=== PATIENT | female | born 1955 | race Caucasian/White ===

== ENCOUNTER 2021-05-23 20:39 | Emergency (ER) | payer OTHER ==
[2021-05-23 22:24] LABS: BASOPHIL 0.3 % (0-2); HCT 38.1 % (37.0-47.0); HGB 12.6 g/dl (12.5-16.0); LYMPHOCYTE 49.8 % (15-48); MCH 31.6 pg (25.0-31.0); MCHC 33.1 g/dL (32.0-36.0); MCV 95.5 fL (78.0-100.0); MONOCYTE 6.4 % (0-12); MPV 10.1 fL (6.0-9.5); NEUTROPHIL 42.2 % (41-80); NRBC 0; PLT 224 K/uL (150-400); RBC 3.99 M/uL (4.20-5.40); RDW 12.6 % (11.5-14.0); WBC 13.4 K/uL (4.0-10.5)
[2021-05-23 22:52] LABS: BUN/CREAT RATIO (CALC) 14.7 RATIO; CREATININE 1.16 mg/dL (0.51-0.95); POTASSIUM 4.2 mmol/L (3.5-5.1)
== END 2021-05-24 00:35 | disposition home or self-care (01) ==
LOC: FER 20:39
PROVIDERS: Internal Medicine
DX: M54.12 Radiculopathy, cervical region (principal); N17.9 Acute kidney failure, unspecified; E11.9 Type 2 diabetes mellitus without complications; I10 Essential (primary) hypertension; Z88.8 Allergy status to other drugs, medicaments and biological substances; Z79.84 Long term (current) use of oral hypoglycemic drugs
CPT/HCPCS: 36415; 72125; 80048; 84484; 85025; 93005; J3490